=== PATIENT | female | born 1980 | race Two or more races ===

== ENCOUNTER 2019-02-28 08:41 | Outpatient (CLI) | payer OTHER | END 2019-02-28 09:30 | disposition home or self-care (01) | LOC: PRENATAL 08:41 | DX: O09.02 Supervision of pregnancy with history of infertility, second trimester (principal); O09.292 Supervision of pregnancy with other poor reproductive or obstetric history, second trimester; O09.512 Supervision of elderly primigravida, second trimester ==

== ENCOUNTER 2022-10-16 06:21 | Day surgery (SDC) | payer OTHER | END 2022-10-16 16:50 | disposition home or self-care (01) | LOC: CIR.AMB 06:21 | PROVIDERS: ATTEND Specialist | DX: O03.4 Incomplete spontaneous abortion without complication (principal); O02.0 Blighted ovum and nonhydatidiform mole ==

== ENCOUNTER 2024-06-25 10:57 | Emergency (ER) | payer OTHER ==
[~2024-06-25] VITALS: Ht 165.1 cm; Wt 59.0 kg
== END 2024-06-25 14:20 | disposition home or self-care (01) ==
LOC: ER 11:00
DX: S61.220A Laceration with foreign body of right index finger without damage to nail, initial encounter (principal); W26.0XXA Contact with knife, initial encounter; Y93.89 Activity, other specified; Y92.89 Other specified places as the place of occurrence of the external cause